=== PATIENT | female | born 1970 ===

== ENCOUNTER 2016-06-19 09:03 | Outpatient (RCR) | payer BC ==
--- NOTE | 2016-06-20 02:37 | Consultation ---
DATE OF CONSULTATION: CONSULTATION: HISTORY OF PRESENT ILLNESS: The patient is a 45-year-old female admitted for evaluation hyperbaric oxygen. The patient has a history of ankle surgery for a torn ligament back in March 07. The patient developed postoperative infection with polymicrobial findings. The patient was treated with IV antibiotics and has been on antibiotics now for several months. The patient underwent further surgery included plastics to the ankle, the patient eventually did developed the foot infection with microbacterium with further antibiotics. The patient has a large wound on her left ankle. The patient did have an MRI of the ankle which did confirm osteomyelitis. The patient now presents for hyperbaric oxygen. She admits to history of asthma although currently stable. The patient denies any nasal congestion or nasal issues. PAST MEDICAL HISTORY: SLE, Sjogren's, and asthma. MEDICATIONS: None at present. SOCIAL HISTORY: The patient is . She does have one child. REVIEW OF SYSTEMS: The patient with history of asthma, no nasal congestion, no nasal drip. She will take albuterol as needed for her asthma symptoms. PHYSICAL EXAMINATION: GENERAL: The patient is a well-developed female, comfortable. VITAL SIGNS: Stable and afebrile. HEENT: The patient's tympanic membranes are clear. Nose within normal, nasal cavities within normal as well. LUNGS: Clear. CARDIAC: S2. Regular rate and rhythm without murmurs, rubs, or gallops. ABDOMEN: Soft. IMPRESSION: 1. Evidence of left ankle osteomyelitis. 2. Failed flap. 3. History of systemic lupus erythematosus. 4. History of Sjogren's . RECOMMENDATIONS: The patient appears to be a candidate for hyperbaric oxygen. Would recommend 30 treatments with 2 atmospheres at 90 minute intervals and ongoing wound care management for further evaluation. Further treatments pending reevaluation at that time. Rochelle Black JOB#: [id number] CC: ; Hyperbaric Chamber Cady Leal M.D. ; Fax#: [phone] [facility]
== END 2016-07-03 | disposition home or self-care (01) ==
LOC: WCC 09:03
DX: L97.322 Non-pressure chronic ulcer of left ankle with fat layer exposed (principal); T86.828 Other complications of skin graft (allograft) (autograft); M86.172 Other acute osteomyelitis, left ankle and foot; J45.909 Unspecified asthma, uncomplicated; M19.90 Unspecified osteoarthritis, unspecified site
CPT/HCPCS: G0277; G0463

== ENCOUNTER 2016-07-04 06:30 | Outpatient (RCR) | payer BC | END 2016-07-31 | disposition home or self-care (01) | LOC: WCC 06:30 | DX: L97.322 Non-pressure chronic ulcer of left ankle with fat layer exposed (principal); T86.828 Other complications of skin graft (allograft) (autograft); M86.172 Other acute osteomyelitis, left ankle and foot; M19.90 Unspecified osteoarthritis, unspecified site | CPT/HCPCS: G0277 ×17 ==

== ENCOUNTER 2016-08-01 08:30 | Outpatient (RCR) | payer BC | END 2016-08-31 | disposition home or self-care (01) | LOC: WCC 08:30 | DX: L97.322 Non-pressure chronic ulcer of left ankle with fat layer exposed (principal); T86.828 Other complications of skin graft (allograft) (autograft); M86.172 Other acute osteomyelitis, left ankle and foot; M19.90 Unspecified osteoarthritis, unspecified site; J45.909 Unspecified asthma, uncomplicated | CPT/HCPCS: G0277 ×6 ==